=== PATIENT | female | born 1980 | race Hispanic/Latino ===

== ENCOUNTER 2017-12-11 15:23 | Emergency (ER) | payer BC, OTHER, SELFPAY ==
[2017-12-11] MEDS ORDERED: Diazepam 5 MG TAB ONE (16:25)
== END 2017-12-11 16:35 | disposition home or self-care (01) ==
LOC: ERS 15:23
DX: S16.1XXA Strain of muscle, fascia and tendon at neck level, initial encounter (principal); M54.5 Low back pain; F41.9 Anxiety disorder, unspecified; F17.210 Nicotine dependence, cigarettes, uncomplicated; V43.52XA Car driver injured in collision with other type car in traffic accident, initial encounter
CPT/HCPCS: 99283